=== PATIENT | female | born 1985 | race Caucasian/White ===

== ENCOUNTER 2023-10-05 17:10 | Emergency (ER) | payer SELFPAY ==
[~2023-10-05] VITALS: Ht 157.5 cm; Wt 72.6 kg
[2023-10-05 17:16] VITALS: BP_SYST 125; PULSE 68; RESP 16; TEMP 97.7; O2SAT 98
[2023-10-05 18:07] VITALS: BP_SYST 125; PULSE 68; RESP 16; TEMP 97.7; O2SAT 98
== END 2023-10-05 18:07 ==
LOC: SED 17:10
DX: M25.531 Pain in right wrist (principal); M25.511 Pain in right shoulder; Z79.899 Other long term (current) drug therapy
CPT/HCPCS: 99284